=== PATIENT | male | born 1980 | race African-American/Black ===

== ENCOUNTER 2016-12-26 06:46 | Emergency (ER) | payer SELFPAY ==
[~2016-12-26] VITALS: Ht 175.3 cm; Wt 74.8 kg
[2016-12-26] MEDS ORDERED: ONDANSETRON PF 4 MG/2 ML VIAL. IV ONE (07:15)
[2016-12-26] MEDS ORDERED: IV NORMAL SALINE 1000ML BAG 1,000 ML IV ONE (07:15)
[2016-12-26] MEDS ORDERED: MORPHINE SULFATE 10 MG/ML VIAL. IV ONE (07:15)
[2016-12-26] MEDS ORDERED: KETOROLAC TROMETHAMINE 30 MG/ML SYRINGE. IV ONE (07:15)
[2016-12-26 07:24] LABS: BASO # 0.1 x10^3/uL (0.0-0.2); BASO % 1 % (0-3); EOS % 1 % (0-3); HEMOGLOBIN 15.6 g/dL (13.0-17.5); LYMPH # 2.6 x10^3/uL (1.0-4.8); LYMPH % 26 % (24-48); MEAN CORPUSCULAR HEMOGLOBIN 30 pg (25-35); MEAN CORPUSCULAR HGB CONC 33 g/dL (31-37); MEAN CORPUSCULAR VOLUME 89 fL (79-100); MONO % 10 % (0-9); NEUT % 62 % (31-73); PLATELET COUNT 307 x10^3/uL (140-400); RED BLOOD COUNT 5.28 x10^6/uL (4.30-5.70); RED CELL DISTRIBUTION WIDTH 14.2 % (11.5-14.5)
--- NOTE | 2016-12-26 07:24 | PHYS DOC ---
Past Medical History Past Medical History: No Pertinent History Past Surgical History: No Surgical History Alcohol Use: Occasionally Drug Use: Marijuana Adult General Chief Complaint Chief Complaint: FLANK PAIN HPI HPI Patient is a 36 year old male with no significant medical history who presents with left flank pain rated at 8 out of 10 and described as sharp, patient states the pain has been occurring intermittently for the last 3 days. Patient states the pain occurs once a day but when it "strikes" it's very painful. Patient also states when the pain strikes he has a sensation of wanting to use the bathroom but is not able to due to pain. Patient denies any hematuria. Denies any nausea vomiting or fever. Denies any personal or family history of kidney stones. Review of Systems Review of Systems Constitutional: Denies fever or chills [] Eyes: Denies change in visual acuity, redness, or eye pain [] HENT: Denies nasal congestion or sore throat [] Respiratory: Denies cough or shortness of breath [] Cardiovascular: No additional information not addressed in HPI [] GI: Denies abdominal pain, nausea, vomiting, bloody stools or diarrhea [] : left flank pain Musculoskeletal: Denies back pain or joint pain [] Integument: Denies rash or skin lesions [] Neurologic: Denies headache, focal weakness or sensory changes [] Endocrine: Denies polyuria or polydipsia [] Current Medications Current Medications Current Medications Medications (Trade) Dose Ordered Sig/[facility] Start Time Stop Time Status Last Admin Dose Admin Hydromorphone HCl (Dilaudid) 1 mg 1X ONCE 12/26/16 09:00 12/26/16 09:01 UNV Ketorolac Tromethamine (Toradol) 30 mg 1X ONCE 12/26/16 07:15 12/26/16 07:23 DC 12/26/16 08:03 30 MG Morphine Sulfate 5 mg 1X ONCE 12/26/16 07:15 12/26/16 07:23 DC 12/26/16 07:54 5 MG Ondansetron HCl 4 mg 4 mg 1X ONCE 12/26/16 07:15 12/26/16 07:23 DC 12/26/16 07:51 4 MG Sodium Chloride (Iv Sodium Chloride 0.9% 1000ml Bag) 1,000 ml @ 1,000 mls/hr 1X ONCE 12/26/16 07:15 12/26/16 08:14 DC 12/26/16 07:50 1,000 MLS/HR Tamsulosin HCl (Flomax) 0.4 mg 1X ONCE 12/26/16 09:00 12/26/16 09:01 UNV Allergies Allergies Allergies Coded Allergies Type Severity Reaction Last Updated Verified No Known Drug Allergies 12/26/16 No Physical Exam Physical Exam Constitutional: Well developed, well nourished, no acute distress, non-toxic appearance. [] HENT: Normocephalic, atraumatic, bilateral external ears normal, oropharynx moist, no oral exudates, nose normal. [] Eyes: PERRLA, EOMI, conjunctiva normal, no discharge. [] Neck: Normal range of motion, no tenderness, supple, no stridor. [] Cardiovascular:Heart rate regular rhythm, no murmur [] Lungs & Thorax: Bilateral breath sounds clear to auscultation [] Abdomen: Bowel sounds normal, soft, no tenderness, no masses, no pulsatile masses. [] Skin: Warm, dry, no erythema, no rash. [] Back: No tenderness,mild left CVA tenderness. [] Extremities: No tenderness, no cyanosis, no clubbing, ROM intact, no edema. [] Neurologic: Alert and oriented X 3, normal motor function, normal sensory function, no focal deficits noted. [] Psychologic: Affect normal, judgement normal, mood normal. [] Current Patient Data Vital Signs Vital Signs Date Time Temp Pulse Resp B/P Pulse Ox O2 Delivery O2 Flow Rate FiO2 12/26/16 08:15 80 16 174/93 96 Room Air 12/26/16 06:52 98.1 98.1 Lab Values Laboratory Tests Test 12/26/16 06:50 12/26/16 06:53 White Blood Count 10.0x10^3/uL (4.0-11.0) Red Blood Count 5.28x10^6/uL (4.30-5.70) Hemoglobin 15.6g/dL (13.0-17.5) Hematocrit 47.0% (39.0-53.0) Mean Corpuscular Volume 89fL (79-100) Mean Corpuscular Hemoglobin 30pg (25-35) Mean Corpuscular Hemoglobin Concent 33g/dL (31-37) Red Cell Distribution Width 14.2% (11.5-14.5) Platelet Count 307x10^3/uL (140-400) Neutrophils (%) (Auto) 62% (31-73) Lymphocytes (%) (Auto) 26% (24-48) Monocytes (%) (Auto) 10% (0-9) H Eosinophils (%) (Auto) 1% (0-3) Basophils (%) (Auto) 1% (0-3) Neutrophils # (Auto) 6.2x10^3uL (1.8-7.7) Lymphocytes # (Auto) 2.6x10^3/uL (1.0-4.8) Monocytes # (Auto) 1.0x10^3/uL (0.0-1.1) Eosinophils # (Auto) 0.1x10^3/uL (0.0-0.7) Basophils # (Auto) 0.1x10^3/uL (0.0-0.2) Sodium Level 143mmol/L (136-145) Potassium Level 3.6mmol/L (3.5-5.1) Chloride Level 106mmol/L (98-107) Carbon Dioxide Level 27mmol/L (21-32) Anion Gap 10 (6-14) Blood Urea Nitrogen 12mg/dL (8-26) Creatinine 1.3mg/dL (0.7-1.3) Estimated GFR (Cockcroft-Gault) 75.6 BUN/Creatinine Ratio 9 (6-20) Glucose Level 118mg/dL (70-99) H Calcium Level 9.2mg/dL (8.5-10.1) Total Bilirubin 1.0mg/dL (0.2-1.0) Aspartate Amino Transferase (AST) 28U/L (15-37) Alanine Aminotransferase (ALT) 42U/L (16-63) Alkaline Phosphatase 79U/L (46-116) Total Protein 7.5g/dL (6.4-8.2) Albumin 4.0g/dL (3.4-5.0) Albumin/Globulin Ratio 1.1 (1.0-1.7) Lipase 93U/L (73-393) Urine Collection Type Unknown Urine Color Yellow Urine Clarity Clear Urine pH 5.5 Urine Specific [place] 1.025 Urine Protein Negativemg/dL (NEG-TRACE) Urine Glucose (UA) Negativemg/dL (NEG) Urine Ketones (Stick) 15mg/dL (NEG) Urine Blood Small (NEG) Urine Nitrite Negative (NEG) Urine Bilirubin Negative (NEG) Urine Urobilinogen Dipstick 0.2mg/dL (0.2 mg/dL) Urine Leukocyte Esterase Negative (NEG) Urine RBC 1-2/HPF (0-2) Urine WBC 1-4/HPF (0-4) Urine Squamous Epithelial Cells Few/LPF Urine Bacteria 0/HPF (0-FEW) Urine Mucus Mod/LPF Laboratory Tests 12/26/16 06:50 Laboratory Tests 12/26/16 06:50 EKG EKG [] Radiology/Procedures Radiology/Procedures []PROCEDURE: ABDOMEN PELVIS WO CONTRAST CT of the abdomen and pelvis without contrast, 12/26/2016: History: Left-sided pain Noncontrast scans were obtained through the urinary tract utilizing the renal stone protocol. This is a limited study for evaluation of the possibility of urinary tract calculi. No intrarenal calculi are identified. The right renal collecting system and right ureter are unremarkable. There is a 3-4 mm intrarenal calculus on the left. There is mild dilatation of the left renal collecting system and left ureter. There is mild perinephric edema on the left. There is an 3-4 mm calculus in the distal left ureter just superior to the level of the ureterovesical junction. Several other small bilateral pelvic calcifications apparently represent a combination of arterial calcifications and phleboliths. The urinary bladder is now well distended and poorly defined. The unopacified liver is unremarkable. No gallbladder abnormality is seen. No pancreatic abnormality is detected. The spleen is of normal size. Mild aortoiliac calcific plaquing is present. The bowel loops are not dilated. No free air is evident in the abdomen or pelvis. There appears to be a trace amount of free fluid in the pelvis. IMPRESSION: 1. Small obstructing calculus in the distal left ureter with mild associated left perinephric edema. 2. Small nonobstructing left intrarenal calculus. PQRS Compliance Statement: One or more of the following individualized dose reduction techniques were utilized for this examination: 1. Automated exposure control 2. Adjustment of the mA and/or kV according to patient size 3. Use of iterative reconstruction technique DICTATED and SIGNED BY: JUANJOSE HERNANDEZ MD DATE: 12/26/1605 CC: JOHN HENRIQUEZ APRN; NO PCP ~ Course & Med Decision Making Course & Med Decision Making Pertinent Labs and Imaging studies reviewed. (See chart for details) Patient is in the ED with complaints of left flank pain that began 3 days ago. Denies any history of kidney stones. Denies any hematuria. Urine analysis is negative for infection but noted for small amount of blood. CBC CMP with no acute findings. CT of the abdomen and pelvic is noted for small obstructing distal left ureter stone with associated left perinephric edema and small nonobstructing left intrarenal calculus. Patient's pain is well-controlled in the ED. Patient is interested in going home. He was discharged with pain medications and Flomax. Provided him Dr. Ballesteros's contact number for follow-up. Provided him return precautions and discharged in stable condition. Dragon Disclaimer Dragon Disclaimer This electronic medical record was generated, in whole or in part, using a voice recognition dictation system. Departure Departure Impression: Primary Impression: Kidney stone on left side Disposition: HOME, SELF-CARE Condition: STABLE Referrals: NO PCP (PCP) RODRICK BALLESTEROS DO follow up with doctor Katty in 3-7 days Patient Instructions: Kidney Stones, [id number] Additional Instructions: You were seen for left flank pain and noted for a kidney stone. Please take the prescribed medicines as ordered. Come back to the ED at any point your symptoms worsen. Scripts Oxycodone/Apap 5-325 (Percocet 5-325 Mg Tablet)1 Each Tablet1-2 Tab PO Q4-6HRS # 30 TAB Prov:JOHN HENRIQUEZ APRN 12/26/16 Tamsulosin Hcl (Flomax)0.4 Mg Cap.er.24h1 Cap PO DAILY #6 CAP Ref 11 Prov:OJHN HENRIQUEZ APRN 12/26/16 JOHN HENRIQUEZ APRN Dec 26, 2016 07:24
[2016-12-26 07:28] LABS: BILIRUBIN,URINE NEGATIVE (NEG); GLUCOSE,URINE NEGATIVE (NEG); NITRITE,URINE NEGATIVE (NEG); PH,URINE 5.5; PROTEIN,URINE NEGATIVE (NEG-TRACE); UROBILINOGEN,URINE 0.2 mg/dL (0.2 mg/dL)
[2016-12-26 07:34] LABS: CALCIUM 9.2 mg/dL (8.5-10.1); CREATININE 1.3 mg/dL (0.7-1.3); GFR 75.6; POTASSIUM 3.6 mmol/L (3.5-5.1)
[2016-12-26 07:40] LABS: ALBUMIN/GLOBULIN RATIO 1.1 (1.0-1.7); TOTAL PROTEIN 7.5 g/dL (6.4-8.2)
[2016-12-26 07:42] LABS: BACTERIA,URINE 0 /HPF (0-FEW); SQUAMOUS EPITHELIAL CELL,UR FEW /LPF
--- NOTE | 2016-12-26 08:18 | RAD ---
CT of the abdomen and pelvis without contrast, 12/26/2016: History: Left-sided pain Noncontrast scans were obtained through the urinary tract utilizing the renal stone protocol. This is a limited study for evaluation of the possibility of urinary tract calculi. No intrarenal calculi are identified. The right renal collecting system and right ureter are unremarkable. There is a 3-4 mm intrarenal calculus on the left. There is mild dilatation of the left renal collecting system and left ureter. There is mild perinephric edema on the left. There is an 3-4 mm calculus in the distal left ureter just superior to the level of the ureterovesical junction. Several other small bilateral pelvic calcifications apparently represent a combination of arterial calcifications and phleboliths. The urinary bladder is now well distended and poorly defined. The unopacified liver is unremarkable. No gallbladder abnormality is seen. No pancreatic abnormality is detected. The spleen is of normal size. Mild aortoiliac calcific plaquing is present. The bowel loops are not dilated. No free air is evident in the abdomen or pelvis. There appears to be a trace amount of free fluid in the pelvis. IMPRESSION: 1. Small obstructing calculus in the distal left ureter with mild associated left perinephric edema. 2. Small nonobstructing left intrarenal calculus. PQRS Compliance Statement: One or more of the following individualized dose reduction techniques were utilized for this examination: 1. Automated exposure control 2. Adjustment of the mA and/or kV according to patient size 3. Use of iterative reconstruction technique
[2016-12-26] MEDS ORDERED: OXYC-323 PO (09:06)
[2016-12-26] MEDS ORDERED: TAMS0.4C97 PO (09:06)
[2016-12-26 09:30] VITALS: BP 156/81
[2016-12-26] MEDS ORDERED: TAMSULOSIN 0.4 MG CAP.ER.24H. PO ONE (09:30)
[2016-12-26] MEDS ORDERED: HYDROMORPHONE 2 MG/ML VIAL. IV ONE (09:30)
== END 2016-12-26 09:43 | disposition home or self-care (01) ==
LOC: ER 06:46
DX: N20.2 Calculus of kidney with calculus of ureter (principal); F12.10 Cannabis abuse, uncomplicated
CPT/HCPCS: 36415; 74176; 80053; 81001; 83690; 85027; 96361; 96374; 96375; 99285; J1885; J2270; J2405; J7030